=== PATIENT | male | born 1965 | race Caucasian/White ===

== ENCOUNTER 2017-11-21 07:18 | Day surgery (SDC) | payer OTHER ==
[~2017-11-21] VITALS: Ht 174 cm; Wt 105.2 kg
[~2017-11-21 07:18] MED LIST: ABILIFY5 MG PO; BRINTELLIX20 MG PO; DESYREL100 MG PO; DICLOFENAC POTA50 MG PO; HYDROCODON-ACE1 EAC9 PO; HYDROXYZINE HCL10 MG PO; IBUPROFEN800 MG PO; LEVEMIR FL100 UNIT/1 SC; LOSARTAN POTASS25 MG PO; METFORMIN HCL750 MG PO; NEURONTIN300 MG PO; NOVOLOG PE100 UNITS/ SC; PRAVASTATIN SOD20 MG PO; PRILOSEC OTC20 MG PO; RITALIN10 MG PO; TOPAMAX50 MG PO; TRADJENTA5 MG PO; TRAZODONE HCL300 MG PO; TRICOR145 MG PO; TRULICITY0.75 MG/0. SC; ZANTAC150 MG PO; ZOFRAN4 MG PO
[2017-11-21] MEDS ORDERED: VITAMIN D2000 UNI1 PO (07:58)
== END 2017-11-21 09:50 | disposition home or self-care (01) ==
LOC: PAIN 07:18
PROVIDERS: Anesthesiology Pain Medicine
DX: M47.816 Spondylosis without myelopathy or radiculopathy, lumbar region (principal); M54.5 Low back pain; G89.29 Other chronic pain; M51.36 Other intervertebral disc degeneration, lumbar region; M50.30 Other cervical disc degeneration, unspecified cervical region; I10 Essential (primary) hypertension; E11.9 Type 2 diabetes mellitus without complications; K21.9 Gastro-esophageal reflux disease without esophagitis; Z79.4 Long term (current) use of insulin; Z79.891 Long term (current) use of opiate analgesic
CPT/HCPCS: 82948; J1030; J2250; S0020

== ENCOUNTER 2017-12-03 06:45 | Day surgery (SDC) | payer OTHER ==
[~2017-12-03] VITALS: Ht 171.4 cm; Wt 100.2 kg
[~2017-12-03 06:45] MED LIST changes: +VITAMIN D2000 UNI1 PO
== END 2017-12-03 08:49 | disposition home or self-care (01) ==
LOC: PAIN 06:45
PROVIDERS: Anesthesiology Pain Medicine
DX: M47.816 Spondylosis without myelopathy or radiculopathy, lumbar region (principal); M50.20 Other cervical disc displacement, unspecified cervical region; M25.78 Osteophyte, vertebrae; M51.36 Other intervertebral disc degeneration, lumbar region; F31.9 Bipolar disorder, unspecified; F41.9 Anxiety disorder, unspecified; E11.9 Type 2 diabetes mellitus without complications; Z79.4 Long term (current) use of insulin; I10 Essential (primary) hypertension
CPT/HCPCS: 82948; J1030; J2250; J3010; S0020

== ENCOUNTER 2018-01-28 08:14 | Day surgery (SDC) | payer OTHER ==
[~2018-01-28] VITALS: Ht 171.4 cm; Wt 100.2 kg
== END 2018-01-28 09:55 | disposition home or self-care (01) ==
LOC: PAIN 08:14 → SDC 08:30 → PAIN 08:30
PROVIDERS: Anesthesiology Pain Medicine
DX: M47.816 Spondylosis without myelopathy or radiculopathy, lumbar region (principal); M51.36 Other intervertebral disc degeneration, lumbar region; M79.1 Myalgia; M25.78 Osteophyte, vertebrae; M50.90 Cervical disc disorder, unspecified, unspecified cervical region; M50.20 Other cervical disc displacement, unspecified cervical region; E11.9 Type 2 diabetes mellitus without complications; Z79.4 Long term (current) use of insulin; I10 Essential (primary) hypertension; F31.9 Bipolar disorder, unspecified; F41.9 Anxiety disorder, unspecified
CPT/HCPCS: 82948; J1030; J1885; J2250; S0020

== ENCOUNTER 2018-02-27 09:09 | Day surgery (SDC) | payer OTHER ==
[~2018-02-27] VITALS: Ht 171.4 cm; Wt 100.2 kg
[2018-02-27 10:35] LABS: CHLORIDE 103 MEQ/L (99-109); GFR ESTIMATE (CALCULATED) > 59 mL/min/ (58.99-99999); GLUCOSE 140 mg/dL (70-99); POTASSIUM 3.7 MEQ/L (3.7-5.4); SODIUM 137 MEQ/L (136-147); UREA NITROGEN (BUN) 34 mg/dL (9-23)
== END 2018-02-27 11:13 | disposition home or self-care (01) ==
LOC: PAIN 09:09 → SDC 10:15 → PAIN 10:15
PROVIDERS: Anesthesiology; Anesthesiology Pain Medicine
DX: M47.816 Spondylosis without myelopathy or radiculopathy, lumbar region (principal); M51.36 Other intervertebral disc degeneration, lumbar region; M79.1 Myalgia; I10 Essential (primary) hypertension; E11.9 Type 2 diabetes mellitus without complications; K21.9 Gastro-esophageal reflux disease without esophagitis; Z79.891 Long term (current) use of opiate analgesic
CPT/HCPCS: 80048; 82948; J1030; J2250; S0020

== ENCOUNTER 2018-04-10 07:09 | Day surgery (SDC) | payer OTHER ==
[~2018-04-10] VITALS: Ht 171.4 cm; Wt 100.3 kg
[~2018-04-10 07:09] MED LIST changes: +VICTOZA 2-0.6 MG/0.1 SC
== END 2018-04-10 09:40 | disposition home or self-care (01) ==
LOC: PAIN 07:09 → SDC 14:10 → PAIN 14:31
PROVIDERS: Anesthesiology Pain Medicine
DX: M50.13 Cervical disc disorder with radiculopathy, cervicothoracic region (principal); M25.78 Osteophyte, vertebrae; M47.816 Spondylosis without myelopathy or radiculopathy, lumbar region; M51.36 Other intervertebral disc degeneration, lumbar region; K21.9 Gastro-esophageal reflux disease without esophagitis; I10 Essential (primary) hypertension; E11.9 Type 2 diabetes mellitus without complications; Z79.4 Long term (current) use of insulin; Z79.891 Long term (current) use of opiate analgesic
CPT/HCPCS: 82948; 93005; J1100; J2250